=== PATIENT | female | born 1935 | race Caucasian/White ===

== ENCOUNTER 2022-05-08 00:46 | Emergency (ER) | payer MEDICARE, OTHER ==
[2022-05-08 01:10] VITALS: BP 133/75
[2022-05-08 01:12] LABS: HEMATOCRIT 36.8 % (37.0-47.0); HEMOGLOBIN 12.5 g/dl (12.0-16.0); IMMATURE GRANULOCYTES 0.3 % (0.0-5.0); MEAN CELL VOLUME 91.1 fL CALC (80.0-100.0); MEAN CORPUSCULAR HGB 30.9 pG CALC (26.0-32.0); NEUT# 2.93 thou/uL (2.00-7.15); RED BLOOD COUNT 4.04 mill/uL (4.20-5.60); RED CELL DISTRI WIDTH 14.1 % (11.5-15.5)
[2022-05-08 01:26] LABS: ALBUMIN 4.5 g/dL (3.2-5.0); ALKALINE PHOSPHATASE 103 u/l (38-126); ANION GAP 12 (6-22 (CALC)); BILIRUBIN, TOTAL 0.4 mg/dL (0.0-1.4); BUN 18 mg/dL (8-23); BUN/CREATININE RATIO 24 (12-20 (CALC)); CARBON DIOXIDE 28 mmol/l (22-30); CHLORIDE 98 mmol/l (95-108); CPK 52 u/l (30-165); CREATININE 0.7 mg/dL (0.5-1.0); GFR FOR AFR.AMER. > 60 ML/MIN (>=60 (CALC)); GFR OTHER RACES > 60 ML/MIN (>=60 (CALC)); LIPASE 174 u/l (23-300); MAGNESIUM 2.2 mg/dL (1.6-2.3); POTASSIUM 3.4 mmol/l (3.5-5.1); SGOT/AST 34 u/l (9-36); SODIUM 134 mmol/l (137-146); TOTAL PROTEIN 7.5 g/dL (6.3-8.2)
[2022-05-08 03:07] VITALS: BP 133/75
[2022-05-08] MEDS ORDERED: NORVASC5 M1 PO (03:13)
[2022-05-08] MEDS ORDERED: TRAZODONE50 MG PO (03:14)
[2022-05-08] MEDS ORDERED: CARVEDILOL6.25 MG PO (03:14)
== END 2022-05-08 03:25 | disposition home or self-care (01) ==
LOC: ED 00:46
PROVIDERS: Internal Medicine
DX: R07.9 Chest pain, unspecified (principal); I10 Essential (primary) hypertension

== ENCOUNTER 2024-08-21 20:28 | Observation (INO) | payer MEDICARE, OTHER ==
[2024-08-21] VITALS (11 sets, daily range): BP systolic 144–170; BP diastolic 66–88
[~2024-08-21] VITALS: Ht 152.4 cm; Wt 75.0 kg
[~2024-08-21 20:28] MED LIST: ASPIRINCHW 81MG PO; AZELASTINE HCL0.1 %; CARVEDILOL6.25 MG PO; CITALOPRAM10 M1; HYZAAR1 TA1 PO; LORAZEPAM0.5 MG PO; NORVASC5 M1 PO; OMEPRAZOLE DR40 MG; PREDNISONE10 MG PO; TRAZODONE50 MG PO; ZPAK PO
--- NOTE | 2024-08-21 20:30 | NUR ---
ARRIVED VIA EMS. TRIAGED AT BEDSIDE.
[2024-08-21] MEDS ORDERED: SODIUM CHLORIDE 0.9% 1,000 ML IV ONE (20:40)
[2024-08-21 21:11] LABS: BASO% 0.6 % (0-3); EOS% 4.7 % (0-8); HEMATOCRIT 37.7 % (37.0-47.0); HEMOGLOBIN 12.7 g/dl (12.0-16.0); IMMATURE GRANULOCYTES 0.1 % (0.0-5.0); LYMPH% 27.8 % (15-41); MEAN CELL VOLUME 90.6 fL CALC (80.0-100.0); MEAN CORPUSCULAR HGB 30.5 pG CALC (26.0-32.0); MEAN CORPUSCULAR HGB CONC 33.7 g/dL CAL (32.0-36.0); NEUT# 3.62 thou/uL (2.00-7.15); NEUT% 52.8 % (42-76); RED BLOOD COUNT 4.16 mill/uL (4.20-5.60); RED CELL DISTRI WIDTH 14.1 % (11.5-15.5)
[2024-08-21 21:27] LABS: ALBUMIN 4.1 g/dL (3.2-5.0); ALKALINE PHOSPHATASE 113 u/l (38-126); ANION GAP 10 (6-22 (CALC)); BILIRUBIN, TOTAL 0.5 mg/dL (0.02-1.3); BUN 21 mg/dL (8-23); BUN/CREATININE RATIO 27 (12-20 (CALC)); CARBON DIOXIDE 28 mmol/l (22-30); CHLORIDE 97 mmol/l (95-108); CREATININE 0.8 mg/dL (0.5-1.0); ESTIMATED GFR 71 ML/MIN (>=90 (CALC)); MAGNESIUM 2.1 mg/dL (1.6-2.3); POTASSIUM 3.1 mmol/l (3.5-5.1); SGOT/AST 32 u/l (9-36); SODIUM 132 mmol/l (137-146); TOTAL PROTEIN 6.7 g/dL (6.3-8.2)
--- NOTE | 2024-08-21 21:31 | NUR ---
PT MEDICATED PER MD ORDERS. PT UPDATED ON POC, AWAITING FOR RESULTS AT THIS TIME. PT EDUCATED ON NEED FOR URINE SAMPLE. PT STATES SHE IS UNABLE TO GO AT THIS TIME AND WILL ATTEMPT LATER. PT CALL LIGHT WITHIN REACH, FAMILY AT BEDSIDE.
[2024-08-21] MEDS ORDERED: POTASSIUM CHLORIDE 20 MEQ/TAB PO ONE (22:25)
--- NOTE | 2024-08-21 22:26 | NUR ---
ASSISTED PT TO BEDSIDE COMMODE AT THIS TIME TO COLLECT URINE SAMPLE.
[2024-08-21 22:46] LABS: URINE BILIRUBIN - DIPSTICK Negative (NEGATIVE); URINE BLOOD DIPSTICK Negative (NEGATIVE); URINE GLUCOSE - DIPSTICK Negative (NEGATIVE); URINE KETONE Negative (NEGATIVE); URINE NITRITE - DIPSTICK Negative (Negative); URINE PROTEIN - DIPSTICK Negative (NEG-TRACE); URINE SPECIFIC GRAVITY 1.015; URINE UROBILINOGEN - DIPSTICK 0.2 E.U./dL (0.2)
[2024-08-21 22:47] LABS: URINE COLOR Yellow; URINE LEUK ESTERASE Small (NEGATIVE)
[2024-08-21 22:54] LABS: URINE RBC 0-2 RBC/hpf (0-5)
[2024-08-21 22:55] LABS: URINE HYALINE CAST FEW lpf (NONE-RARE)
--- NOTE | 2024-08-21 23:05 | NUR ---
CALLED [facility] GAVE PT REPORT.
[2024-08-21] MEDS ORDERED: SODIUM CHLORIDE 0.9% 1,000 ML IV PRN (23:20)
[2024-08-21] MEDS ORDERED: FAMOTIDINE 10MG/ML 2ML SDV IV PRN (23:20)
[2024-08-21] MEDS ORDERED: ENOXAPARIN SODIUM 40 MG/0.4 ML SYR SC ONE (23:20)
[2024-08-21] MEDS ORDERED: Polyethylene Glycol 3350 17 GM/PKT PO PRN (23:20)
[2024-08-21] MEDS ORDERED: ONDANSETRON HCl 4 MG/2 ML SDV IV PRN (23:20)
[2024-08-21] MEDS ORDERED: ALUM & MAG HYDROX-SIMETHICONE 30 ML PO PRN (23:20)
[2024-08-21] MEDS ORDERED: ONDANSETRON 4 MG/TAB ODT PO PRN (23:20)
[2024-08-21] MEDS ORDERED: IBUPROFEN 800 MG/TAB PO PRN (23:20)
--- NOTE | 2024-08-21 23:47 | NUR ---
PT MEDICATED PER MD ORDERS. PT UPDATED ON POC, [place] [facility] [place] PT VOICES UNDERSTANDING WITH NO FURTHER QUESTIONS. PT CALL LIGHT WITHIN REACH.
[2024-08-22] VITALS (8 sets, daily range): BP systolic 126–187; BP diastolic 61–88
--- NOTE | 2024-08-22 00:35 | NUR ---
CALLED [facility] GAVE PT REPORT TO NURSE.
--- NOTE | 2024-08-22 00:45 | NUR ---
PT WHEELED TO BATHROOM AT THIS TIME.
--- NOTE | 2024-08-22 01:00 | NUR ---
PT TRANSPORTED TO [facility] [place] TIME VIA W/C. NURSE AND BID WRITER AT BEDSIDE.
--- NOTE | 2024-08-22 01:10 | NUR ---
PATIENT ARRIVED TO ROOM 271 VIA WHEELCHAIR. AWAKE, ALERT AND ORIENTED X4. VITALS OBTAINED, BP ELEVATED. ADMISSION HISTORY AND ASSESSMENT COMPLETE. PATIENT DENIES PAIN AT THIS TIME. ORIENTED TO ROOM AND INSTRUCTED ON USE OF BED CONTROLS AND CALL LIGHT. MED ADMINISTERED PER MAR, PATIENT REFUSED IVF STATING "IT WILL KEEP ME IN THE BATHROOM ALL NIGHT". PATIENT EDUCATED ON IMPORTANCE OF MEDICATION ADHERENCE, VERBALIZES UNDERSTANDING. NO DISTRESS NOTED AT THIS TIME. PATIENT COMFORTABLY IN BED, LOW POSITION AND ALARM ACTIVATED. INSTRUCTED TO CALL FOR ASSISTANCE, CALL LIGHT WITHIN REACH.
--- NOTE | 2024-08-22 01:12 | NUR ---
Nurse notified about patient blood pressure being high 171/88.
--- NOTE | 2024-08-22 04:00 | NUR ---
NURSE WAS NOTIFIED ABOUT PATIENT HIGH BLOOD PRESSURE 187/85.
[2024-08-22] MEDS ORDERED: cloNIDine HCL 0.1 MG/TAB PO SCH (04:30)
--- NOTE | 2024-08-22 05:30 | NUR ---
BP RECHECK AFTER CLONIDINE 0.2MG PO; 126/61 MEDICATION EFFECTIVE.
--- NOTE | 2024-08-22 07:00 | NUR ---
REPORT RECEICED FROM [facility]. PT SEEN RESTING IN BED WATCHING TV WITHOUT COMPLAINTS. DAUGHTER CALLED AND UPDATED. VSS AND TELE NSR 71. BED ALARM IN PLACE. IV PATENT. ARTEMIO CHRISTIE.
[2024-08-22] MEDS ORDERED: POTASSIUM CHLORIDE 20 MEQ/TAB PO SCH (09:00)
[2024-08-22 09:22] LABS: ALBUMIN 3.9 g/dL (3.2-5.0); BILIRUBIN, TOTAL 0.5 mg/dL (0.02-1.3); CREATININE 0.6 mg/dL (0.5-1.0); POTASSIUM 3.6 mmol/l (3.5-5.1); TOTAL PROTEIN 6.7 g/dL (6.3-8.2)
--- NOTE | 2024-08-22 10:48 | NUR ---
FAMILY VISITING AT BEDSIDE AND THEN LEFT AND DOCTOR THEN VISITING WITH PT. NO CHANGES TO REPORT. WILL MONITOR.
--- NOTE | 2024-08-22 12:45 | NUR ---
PRINTED DISCHARGE PAPERS REVIEWED WITH DAUGHTER AT BEDSIDE. IV REMOVED WITH CATH TIP INTACT. TELE REMOVED WELL. PT AND DAUGHTER VERBALIZED UNDERSTANDING OF ALL INSTRUCTIONS GIVEN. PT THEN D/C'D VIA W/C ACCOMPANIED BY STAFF.
--- NOTE | 2024-08-22 12:51 | NUR ---
Discharge instructions given. Patient verbalizes understanding of same. Discharged in stable condition via Wheelchair to Home with staff. All belongings sent with pt.
== END 2024-08-22 12:55 | disposition home or self-care (01) ==
LOC: ED 20:28 → ED-I 23:06 → ED 23:17 → MS2 23:18
PROVIDERS: Family Medicine; Nurse Practitioner Family; ADMIT Internal Medicine; ATTEND Internal Medicine
DX: R55 Syncope and collapse (principal); R53.1 Weakness; I10 Essential (primary) hypertension; F41.9 Anxiety disorder, unspecified; Z20.822 Contact with and (suspected) exposure to COVID-19; I44.0 Atrioventricular block, first degree
CPT/HCPCS: G0378; J1650